=== PATIENT | female | born 1960 | race Caucasian/White ===

== ENCOUNTER 2017-08-25 10:27 | Emergency (ER) | payer SELFPAY ==
[2017-08-25] MEDS ORDERED: ONDANSETRON HCL IV 4 MG/2 ML VIAL IV ONE (10:44)
[2017-08-25] MEDS ORDERED: 0.9 % SODIUM CHLORIDE 1,000 ML BAG IV ONE (10:44)
[2017-08-25 11:07] LABS: HEMATOCRIT 41.5 % (35.0-47.0); HEMOGLOBIN 13.5 gm/dl (11.6-16.0); MEAN CELL VOLUME 88.7 fl (81-97); MEAN CORPUSCULAR HEMOGLOBIN 28.8 pg (27-33); MEAN CORPUSCULAR HGB CONC 32.5 g/dl (32-36); MEAN PLATELET VOLUME 9.2 fl (7.4-10.4); PLATELET COUNT 275 K/uL (130-400); RED BLOOD COUNT 4.68 M/uL (3.80-5.40); RED CELL DISTRIBUTION WIDTH 13.8 % (11.5-14.5); WHITE BLOOD COUNT W/O DIFF 4.7 K/uL (4.2-12.2)
[2017-08-25 11:27] LABS: ALB/GLOB RATIO 1.2 (1.1-1.8); ALBUMIN 4.3 g/dL (4.0-5.0); ALKALINE PHOSPHATASE 65 U/L (35-104); ALT/SGPT 20 U/L (<33); AST/SGOT 21 U/L (10.0-35.0); BLOOD UREA NITROGEN 15 mg/dL (6-20); CREATININE 0.6 mg/dL (0.5-0.9); EST GLOMERULAR FILTRATION RATE > 60 mL/min; GLUCOSE,RANDOM 123 mg/dL (74-109); TOTAL PROTEIN 7.8 g/dL (6.6-8.7)
--- NOTE | 2017-08-25 11:30 | Emergency Department Record ---
History of Present Illness - General Chief complaint: Vomiting Stated complaint: VOMITING/COUGHING Time Seen by Provider: 08/25/17 10:35 Source: Patient Mode of Arrival: Ambulatory Limitations: No limitations - History of Present Illness Initial comments: The patient is here due to a cough and congestion for 4-5 days with frequent nausea and vomiting once or twice a day. She has been unable to keep fluids down and has had one episode of diarrhea 4 days ago but none since. There has been no fever, chills, AP, or blood in the vomit. The patient was seen in the [facility] and sent over to the ER for hydration. MD complaint: Nausea, Vomiting Onset/Timin -: Days(s) Description of Vomiting: Bilious, Other Improves with: None Worsens with: None Associated Symptoms: Cough, Loss of appetite, Weakness - Related Data Previous Rx's Medication Instructions Recorded Benzonatate [Tessalon Perle] 100 mg PO TID #20 capsule 08/25/17 Doxycycline Monohydrate [Mondoxyne 100 mg PO BID #14 capsule 08/25/17 Nl] Ondansetron [Zofran Odt] 4 mg SL .Q4-6H PRN #12 tab.rapdis 08/25/17 Allergies Allergy/AdvReac Type Severity Reaction Status Date / Time No Known Allergies Allergy none Verified 08/25/17 10:36 Travel Screening - Travel/Exposure Within Last 30 Days Have you traveled within the last 30 days?: No - Travel/Exposure Within Last Year Have you traveled outside the [place] in the last year?: No - Additonal Travel Details Have you been exposed to anyone with a communicable illness?: No - Travel Symptoms Symptom Screening: None Review of Systems Constitutional: Reports: Malaise. Denies: Chills, Fever Eyes: Denies: Eye discharge ENT: Reports: Congestion Respiratory: Reports: Cough. Denies: Dyspnea Gastrointestinal: Reports: Nausea, Vomiting Past Medical History - SOCIAL HISTORY Smoking Status: Never smoker Alcohol Use: None Drug Use: None - RESPIRATORY Hx Respiratory Disorders: No - CARDIOVASCULAR Hx Cardio Disorders: No - NEURO Hx Neuro Disorders: No - GI Hx GI Disorders: No - Hx Genitourinary Disorders: No - ENDOCRINE Hx Endocrine Disorders: No - MUSCULOSKELETAL Hx Musculoskeletal Disorders: No - PSYCH Hx Psych Problems: No - HEMATOLOGY/ONCOLOGY Hx Hematology/Oncology Disorders: No Family Medical History Any Significant Family History?: No Physical Exam - General General Appearance: Alert, Oriented x3, Cooperative, No acute distress - Head Head exam: Atraumatic, Normocephalic, Normal inspection - Eye Eye exam: Normal appearance, PERRL - ENT Throat exam: Normal inspection. negative: Tonsillar erythema, Tonsillar exudate - Neck Neck exam: Normal inspection, Full ROM. negative: Tenderness - Respiratory Respiratory exam: Normal lung sounds bilaterally. negative: Respiratory distress - Cardiovascular Cardiovascular Exam: Regular rate, Normal rhythm, Normal heart sounds - GI/Abdominal GI/Abdominal exam: Soft, Normal bowel sounds. negative: Tenderness - Extremities Extremities exam: Normal inspection, Full ROM, Normal capillary refill. negative: Tenderness - Neurological Neurological exam: Alert. negative: Motor sensory deficit Course Vital Signs 08/25/17 10:29 Temperature 99.3 F Pulse Rate 102 H Respiratory 20 Rate Blood Pressure 111/77 Pulse Ox 94 L - Reevaluation(s) Reevaluation #1: The patient is doing very well at this time. She denies any pain or discomfort and her nausea has resolved. She is drinking fluids well and is resting comfortably. 08/25/17 12:18 Reevaluation #2: The patient is doing very well. She denies any pain or discomfort and is drinking normally. We will discharge her on cough medicine along with an oral Abx and ZOfran. 08/25/17 13:06 Medical Decision Making - Data Complexity MDM Data: Labs Ordered and/or Reviewed, X-Ray Ordered and/or Reviewed - Lab Data Result diagrams: 08/25/17 10:56 08/25/17 10:56 Lab Results 08/25/17 08/25/17 08/25/17 Range/Units 10:56 10:56 10:56 WBC 4.7 (4.2-12.2) K/uL RBC 4.68 (3.80-5.40) M/uL Hgb 13.5 (11.6-16.0) gm/dl Hct 41.5 (35.0-47.0) % MCV 88.7 (81-97) fl MCH 28.8 (27-33) pg MCHC 32.5 (32-36) g/dl RDW 13.8 (11.5-14.5) % Plt Count 275 (130-400) K/uL MPV 9.2 (7.4-10.4) fl Eosinophils % Not Reportable Basophils % Not Reportable Sodium 141 (136-145) mmol/L Potassium 3.7 (3.4-4.5) mmol/L Chloride 103 (98-107) mmol/L Carbon Dioxide 23.0 (22-29) mmol/L Anion Gap 15.0 (7-16) BUN 15 (6-20) mg/dL Creatinine 0.6 (0.5-0.9) mg/dL Estimated GFR > 60 mL/min Random Glucose 123 H (74-109) mg/dL Calcium 8.8 (8.6-10.0) mg/dL Total Bilirubin 0.20 (0.2-1.0) mg/dL AST 21 (10.0-35.0) U/L ALT 20 (<33) U/L Alkaline Phosphatase 65 (35-104) U/L Total Protein 7.8 (6.6-8.7) g/dL Albumin 4.3 (4.0-5.0) g/dL Globulin 3.5 (1.4-4.8) gm/dL Albumin/Globulin Ratio 1.2 (1.1-1.8) Lipase 18 (13-60) U/L - Radiology Data Radiology results: Report reviewed (CXR: streaky atelectasis or infiltrate LLL.) Disposition Disposition: Discharge Clinical Impression: Upper respiratory infection Qualifiers: URI type: unspecified URI Qualified Code(s): J06.9 - Acute upper respiratory infection, unspecified Disposition: Home, Self-Care Condition: (2) Stable Instructions: Acute Nausea and Vomiting (ED) Additional Instructions: Please take the Doxycycline with the Tessalon and Zofran. Please drink plenty of fluids and see your PCP next week for recheck. Return to the ER for any worsening cough, fever, or dehydration. Please take Tylenol or Motrin for fever. Prescriptions: Benzonatate [Tessalon Perle] 100 mg PO TID #20 capsule Doxycycline Monohydrate [Mondoxyne Nl] 100 mg PO BID #14 capsule Ondansetron [Zofran Odt] 4 mg SL .Q4-6H PRN #12 tab.rapdis PRN Reason: Nausea Forms: Patient Portal Access Time of Disposition: 13:08 Quality - Quality Measures Quality Measures: N/A - Blood Pressure Screening View Details: Yes Does Patient Have Any of the Following: No Blood Pressure Classification: Normal BP Reading Systolic Measurement: 111 Diastolic Measurement: 77 Screening for High Blood Pressure: < Normal BP, F/U Not Required > [[id number]]
[2017-08-25 11:31] LABS: PLATELET ESTIMATE NORMAL (NORMAL)
[2017-08-25 12:53] LABS: URINE APPEARANCE CLEAR; URINE BILIRUBIN SMALL (NEGATIVE); URINE BLOOD SMALL (NEGATIVE); URINE COLOR YELLOW; URINE GLUCOSE (UA) NEGATIVE (NEGATIVE); URINE KETONE TRACE (NEGATIVE); URINE NITRITE NEGATIVE (NEGATIVE); URINE PROTEIN TRACE (NEGATIVE); URINE UROBILINOGEN 0.2 E.U./dL (0.20 - 1.00)
[2017-08-25 12:56] LABS: URINE LEUKOCYTE ESTERASE TRACE (NEGATIVE); URINE WBC 0 - 2 (0-2/hpf)
--- NOTE | 2017-08-26 10:08 | RADIOLOGY REPORT ---
EXAM: CHEST, TWO VIEWS HISTORY: COUGH FOR FIVE DAYS. TECHNIQUE: PA and lateral views of the chest were obtained. Comparison: Two view chest 10/18/14. FINDINGS: The heart size is within normal limits. Minor patch of atelectasis or infiltrate in the lingula. No pleural effusion or pneumothorax evident. Mild thoracic curve to the right again evident. IMPRESSION: 1. MILD STREAKY ATELECTASIS OR INFILTRATE IN THE LINGULA. 2. MILD THORACIC CURVE TO THE RIGHT. JOB NUMBER: [id number] MTDD
== END 2017-08-25 13:18 | disposition home or self-care (01) ==
LOC: ER 10:27
DX: J06.9 Acute upper respiratory infection, unspecified (principal); R11.2 Nausea with vomiting, unspecified; R05 Cough; R19.7 Diarrhea, unspecified; R53.1 Weakness
CPT/HCPCS: 99284 ×2; 96374; 96361; 83690; 80053; 81001; 85027; 71046; J2405; J7030